=== PATIENT | male | born 1960 | race Caucasian/White ===

== ENCOUNTER 2023-02-14 16:27 | Emergency (ER) | payer OTHER, SELFPAY ==
[2023-02-14] VITALS (33 sets, daily range): BP systolic 112–185; BP diastolic 65–104; PULSE 53–73; RESP 11–37; TEMP 36.5; O2SAT 90–100; BMI 22.9
--- NOTE | 2023-02-14 | DI.RAD.S_ITS ---
PROCEDURE: XR ANKLE LT 2V INDICATIONS: TRAUMA TECHNIQUE: 3 views of the ankle were acquired. COMPARISON: None. FINDINGS: Bones: Fracture dislocation of the ankle with the distal tibia completely dislocated from the talus. The distal fibula is fracture distally with displacement. Soft tissues: No tibiotalar joint effusion. Achilles tendon appears normal. IMPRESSION: Fracture dislocation of the left ankle. Dictated by: Kadeem Christensen M.D. on 02/14/2023 at 16:48 Approved by: Kadeem Christensen M.D. on 02/14/2023 at 16:49
--- NOTE | 2023-02-14 16:29 | DI.RAD.S_ITS ---
PROCEDURE: XR ANKLE LT 2V INDICATIONS: post reduction TECHNIQUE: 2 views of the ankle were acquired. COMPARISON: [facility], CR, XR ANKLE LT 2V, 02/14/2023, 16:16. FINDINGS: Bones: Interval reduction, with improved tibiotalar alignment. Medial clear space and lateral clear space widening. Distal fibular fracture demonstrates mild displacement and foreshortening. Soft tissues: Significant tibiotalar joint effusion. Achilles tendon appears normal. Subcutaneous gas about the ankle. IMPRESSION: Interval reduction, with improved tibiotalar alignment. Medial clear space and lateral clear space widening, indicating unstable injury. Distal fibular fracture demonstrates mild displacement and foreshortening. Dictated by: Oc Dotson M.D. on 02/14/2023 at 17:33 Approved by: Oc Dotson M.D. on 02/14/2023 at 17:35
[2023-02-14] MEDS: propofoL 200 MG/20 ML VIAL 70 MG IV (17:05)
--- NOTE | 2023-02-14 17:19 | ED_ITS ---
HPI - Extremity Problem General Chief complaint: Trauma Stated complaint: Paragliding accident Time Seen by Provider: 02/14/23 16:29 Mode of arrival: EMS History of Present Illness HPI Narrative: Patient is a 63-year-old male presenting today after appear gliding accident with left ankle injury. He was sliding off cap [place] when he hit a rock with his ankle. He landed did not hit his head there is no loss of consciousness no neck pain. He is not on any medication. He has an obvious left ankle deformity pulses intact. Denies any other injury. Received fentanyl and Zofran with EMS. Related Data Previous Rx's Medication Instructions Recorded cephalexin 500 mg capsule 500 mg PO TID #21 caps 02/14/23 hydrocodone 5 mg-acetaminophen 325 1 tab PO Q6H PRN pain #10 tabs 02/14/23 mg tablet hydrocodone 5 mg-acetaminophen 325 1 tab PO Q6H PRN pain #15 tabs 02/14/23 mg tablet Allergies Allergy/AdvReac Type Severity Reaction Status Date / Time No Known Drug Allergies Allergy Verified 02/14/23 16:37 Review of Systems Review of Systems ROS Unobtainable: All systems reviewed & are unremarkable except as noted in HPI and below Exam Initial Vital Signs Initial Vital Signs: Vital Signs Pulse Rate 69 02/14/23 16:29 Respiratory Rate 11 L 02/14/23 16:29 Pulse Oximetry 99 02/14/23 16:29 GENERAL: Alert pleasant 63-year-old and in [no acute] distress. HEENT: Head atraumatic,EOMI, pupils reactive, face symmetric, [moist] mucous membranes CARDIOVASCULAR: Regular rate and rhythm without murmurs, rubs or gallops. RESPIRATORY: Breath sounds equal bilaterally, no wheezes rales or rhonchi. ABDOMEN: Soft, nontender. Normoactive bowel sounds all 4 quadrants. No guarding or rebound. EXTREMITIES: Normal range of motion, no clubbing or edema. Neurovascularly intact Obvious left ankle deformity with abrasion left medial malleoli with medial tibial dislocation. Distal pedal pulse present NEUROLOGICAL: Alert and oriented x4.Normal gait and speech. Cranial nerves II through XII grossly intact. SKIN: Warm, dry, no laceration, no petechiae, no rashes or lesions. Procedures Orthopedic Fracture Reduction Fracture #1: Side: left Fracture Reduction Location: tibia and fibula Analgesia: procedural sedation Technique: direct manipulation and traction/counter-traction Post Reduction X-rays Demonstrate: acceptable reduction Post-reduction neuro exam: intact Post-reduction vascular exam: intact Splint Applied: Yes Patient Tolerated Procedure: Well and No complications Orthopedic Splinting/Casting Injury #1: Side: left Lower Extremity Injury Location: ankle Lower Extremity Immobilizer: posterior splint and stirrup splint Other Orthopedic Equipment: crutches Post splinting neuro exam: intact Post splinting vascular exam: intact Placed by: Provider Procedural Sedation Time out performed: Yes Indication: fracture/dislocation reduction ASA Class: II Mallampati Airway Classification: Class II IV Propofol dose (mg): 70 Intraservice time/total sedation time (min): 70 ED Sedation Level: Moderate (Concious) Patient Tolerated Procedure: Well and No complications Complications: none Course Orders Ordered: ED Orders 02/14/23 16:29 XR ankle LT 2V Stat Discontinued Medications Hydrocodone Bitart/Acetaminophen (Hydrocodone/Acet 5/325 Prepack) 1 bottle MISC SEEINSTR ONE Stop: 02/14/23 17:56 Last Admin: 02/14/23 18:11 Dose: 1 bottle Documented By: GI Diphtheria/Tetanus/Acell Pertussis (Tet,Diph,Pertuss(Acell),Vac/Pf 0.5 Ml Syringe) 0.5 ml IM .ONCE ONE Stop: 02/14/23 17:56 Last Admin: 02/14/23 18:18 Dose: 0.5 ml Documented By: GI Cefazolin Sodium 1 gm/ Sodium (Chloride) 100 mls @ 200 mls/hr IV NOW ONE Stop: 02/14/23 18:25 Last Infusion: 02/14/23 19:17 Dose: 0 mls/hr Documented By: Admin: 02/14/23 18:11 Dose: 200 mls/hr Documented By: GI Propofol (Propofol 200 Mg/20 Ml Vial) 70 mg IV NOW ONE Stop: 02/14/23 16:33 Last Admin: 02/14/23 17:05 Dose: 70 mg Documented By: PACO Vital Signs Vital signs: Vital Signs - 8 hr 02/14/23 16:30 02/14/23 16:40 02/14/23 16:29 Temperature 97.7 F Pulse Rate 60 69 Respiratory Rate 16 11 L Blood Pressure 164/99 H Pulse Oximetry 100 99 Oxygen Delivery Method Room Air Room Air 02/14/23 16:30 02/14/23 16:35 02/14/23 16:40 Temperature Pulse Rate 65 65 67 Respiratory Rate 21 25 H 21 Blood Pressure Pulse Oximetry 99 99 Oxygen Delivery Method 02/14/23 16:45 02/14/23 16:46 02/14/23 16:46 Temperature Pulse Rate 61 61 Respiratory Rate 20 15 Blood Pressure 140/88 Pulse Oximetry 97 96 Oxygen Delivery Method 02/14/23 16:50 02/14/23 16:55 02/14/23 17:00 Temperature Pulse Rate 65 60 Respiratory Rate 26 H 29 H Blood Pressure 151/82 H Pulse Oximetry 96 98 Oxygen Delivery Method 02/14/23 17:00 02/14/23 17:05 02/14/23 17:05 Temperature Pulse Rate 56 L 58 L Respiratory Rate 11 L 17 Blood Pressure 143/82 H Pulse Oximetry 99 Oxygen Delivery Method 02/14/23 17:10 02/14/23 17:10 02/14/23 17:15 Temperature Pulse Rate 64 Respiratory Rate 16 Blood Pressure 136/76 135/76 Pulse Oximetry 98 Oxygen Delivery Method 02/14/23 17:15 02/14/23 17:20 02/14/23 17:20 Temperature Pulse Rate 60 57 L Respiratory Rate 29 H 18 Blood Pressure 112/65 Pulse Oximetry 97 99 Oxygen Delivery Method 02/14/23 17:25 02/14/23 17:30 02/14/23 17:33 Temperature Pulse Rate 61 59 L 55 L Respiratory Rate 28 H 37 H 21 Blood Pressure Pulse Oximetry 100 100 98 Oxygen Delivery Method 02/14/23 17:33 02/14/23 17:35 02/14/23 17:35 Temperature Pulse Rate 55 L Respiratory Rate 18 Blood Pressure 158/87 H 156/90 H Pulse Oximetry 99 Oxygen Delivery Method 02/14/23 18:07 02/14/23 17:40 02/14/23 17:40 Temperature Pulse Rate 63 57 L Respiratory Rate 16 19 Blood Pressure 155/104 H Pulse Oximetry 100 Oxygen Delivery Method 02/14/23 17:46 02/14/23 17:46 02/14/23 17:50 Temperature Pulse Rate 59 L Respiratory Rate 25 H Blood Pressure 153/99 H 167/94 H Pulse Oximetry 95 Oxygen Delivery Method 02/14/23 17:50 02/14/23 17:55 02/14/23 17:55 Temperature Pulse Rate 55 L 58 L Respiratory Rate 28 H 19 Blood Pressure 185/80 H Pulse Oximetry 99 95 Oxygen Delivery Method 02/14/23 18:00 02/14/23 18:00 02/14/23 18:05 Temperature Pulse Rate 57 L Respiratory Rate 18 Blood Pressure 164/71 H 146/70 H Pulse Oximetry 99 Oxygen Delivery Method 02/14/23 18:05 02/14/23 18:10 02/14/23 18:10 Temperature Pulse Rate 55 L 55 L Respiratory Rate 20 12 Blood Pressure 135/80 Pulse Oximetry 100 100 Oxygen Delivery Method 02/14/23 18:15 02/14/23 18:15 02/14/23 18:20 Temperature Pulse Rate 62 Respiratory Rate 16 Blood Pressure 162/85 H 154/92 H Pulse Oximetry 100 Oxygen Delivery Method 02/14/23 18:20 02/14/23 18:26 02/14/23 18:26 Temperature Pulse Rate 53 L 60 Respiratory Rate 13 21 Blood Pressure 169/88 H Pulse Oximetry 100 90 L Oxygen Delivery Method 02/14/23 18:30 02/14/23 18:30 02/14/23 18:35 Temperature Pulse Rate 62 Respiratory Rate 20 Blood Pressure 168/101 H 151/93 H Pulse Oximetry 95 Oxygen Delivery Method 02/14/23 18:35 02/14/23 18:40 02/14/23 18:40 Temperature Pulse Rate 67 56 L Respiratory Rate 19 14 Blood Pressure 147/93 H Pulse Oximetry 100 99 Oxygen Delivery Method 02/14/23 18:46 02/14/23 18:46 02/14/23 19:00 Temperature Pulse Rate 73 64 Respiratory Rate 26 H Blood Pressure 163/90 H Pulse Oximetry Oxygen Delivery Method MDM - Extremity (Nontraumatic) Imaging Data Extremity x-ray #1: Radiologist's Impression: PROCEDURE:? XR ANKLE LT 2V ? INDICATIONS:? TRAUMA ? TECHNIQUE:? 3 views of the ankle were acquired.? ? COMPARISON:? None. ? FINDINGS:? ? Bones:? Fracture dislocation of the ankle with the distal tibia completely dislocated from the talus.? The distal fibula is fracture distally with displacement. ? Soft tissues:? No tibiotalar joint effusion.? Achilles tendon appears normal.? ? ? IMPRESSION:? Fracture dislocation of the left ankle. ? ? Dictated by: Kadeem Christensen M.D. on 02/14/2023 at 16:48 ? ? Approved by: Kadeem Christensen M.D. on 02/14/2023 at 16:49 ? Extremity x-ray #2: Radiologist's Impression: PROCEDURE:? XR ANKLE LT 2V ? INDICATIONS:? post reduction ? TECHNIQUE:? 2 views of the ankle were acquired.? ? COMPARISON:? [facility], CR, XR ANKLE LT 2V, 02/14/2023, 16:16. ? FINDINGS:? ? Bones:? Interval reduction, with improved tibiotalar alignment.? Medial clear space and lateral clear space widening.? Distal fibular fracture demonstrates mild displacement and foreshortening. ? Soft tissues:? Significant tibiotalar joint effusion.? Achilles tendon appears normal.? Subcutaneous gas about the ankle. ? ? IMPRESSION:? Interval reduction, with improved tibiotalar alignment.? Medial clear space and lateral clear space widening, indicating unstable injury. ? Distal fibular fracture demonstrates mild displacement and foreshortening. ? Dictated by: Oc Dotson M.D. on 02/14/2023 at 17:33 ? ? MDM Narrative Medical decision making narrative: Patient 63-year-old male presents today after jonas gliding accident presents today with ankle fracture dislocation concern for open with the abrasion and tenting of skin on the medial malleoli. It did reduce easily he never lost pulses. However mortise alignment not ideal. 1735-Dr. Cardenas consulted. Agrees with outpatient follow-up will likely need surgery. Aware of abrasion immediately need or tibia as concern for possible open. Patient has a small abrasion medially where tibia is presumed open fracture. But no obvious bone is seen externally. He is given a dose of Ancef, tetanus and antibiotics. Discharge Plan Departure Patient Disposition: Home Clinical Impression: Closed fracture dislocation of left ankle Instructions: DI for Ankle Fracture Activity Restrictions/Additional Instructions: *You have been diagnosed with left ankle fracture and dislocation *What to do: Keep leg elevated and iced as often as possible. You will require surgery in about 1-2 weeks. No weight-bearing. Use crutches *Continue to take medications as directed--> sent to [facility] in [place] 1 tablet every 6 hours if needed for severe Keflex 500 mg 3 times a day for 7 days *Follow up with your primary care provider in 2-3 days or call [phone] Call Orthopedics Friday to schedule follow-up appointment *Return to ER if you should have increasing pain numbness tingling weakness or any new, worsening or concerning symptoms CONTROLLED SUBSTANCE DISCHARGE (Narcotoic/benzodiazepine/Flexeril/Phenergan) 1. You have been prescribed narcotic medications, it does have acetaminophen/Tylenol/paracetamol in it, DO NOT TAKE MORE THAN 4,00mg in 24 hours of Tylenol. TRAMADOL DOES NOT CONTAIN TYLENOL 2. Please understand that we cannot provide further refills of narcotics, benzodiazepines or controlled substances through the ED and her pain management will need to be through your provider. 3. While on these medications you cannot drive or operate heavy machinery. 4. You cannot sign legal documents or perform any duties such as this. 5. As long as you're taking opiate pain medications he should also be taking a stool softener such as Colace, Dulcolax, MiraLAX or prune juice, to help avoid constipation. Prescriptions: New hydrocodone-acetaminophen 5-325 mg tablet 1 tab PO Q6H PRN (Reason: pain) Qty: 10 0RF hydrocodone-acetaminophen 5-325 mg tablet 1 tab PO Q6H PRN (Reason: pain) Qty: 15 0RF cephalexin 500 mg capsule 500 mg PO TID Qty: 21 0RF Referrals: [facility] [Provider Group] Stand Alone Forms: Patient Portal/API
[2023-02-14] MEDS: HYDROCODONE/ACET 5/325 PREPACK 1 BOTTLE MISC (18:11)
[2023-02-14] MEDS: CEFAZOLIN VIAL 1 GM in SODIUM CHLORIDE 0.9% 100 ML IV (18:11)
[2023-02-14] MEDS: TET,DIPH,PERTUSS(ACELL),VAC/PF 0.5 ML SYRINGE IM (18:18)
== END 2023-02-14 19:20 | disposition home or self-care (01) ==
PROVIDERS: Emergency Provider Emergency Medicine
DX: S82.302A Unspecified fracture of lower end of left tibia, initial encounter for closed fracture (principal); Y93.19 Activity, other involving water and watercraft; Z23 Encounter for immunization
CPT/HCPCS: 27752; 29515; 36415; 73600; 90471; 96365; 99152; 99153; 99285; 90715; J0690; J2704

== ENCOUNTER 2023-02-19 08:27 | Day surgery (SDC) | payer OTHER, SELFPAY ==
[2023-02-18 13:03] VITALS: BMI 23.8
[2023-02-19] VITALS (7 sets, daily range): BP systolic 132–149; BP diastolic 55–90; PULSE 60–70; RESP 12–17; TEMP 36.4–36.9; O2SAT 97–100; BMI 23.8
--- NOTE | 2023-02-19 | DI.RAD.S_ITS ---
PROCEDURE: XR ANKLE LT MIN 3V INDICATIONS: ORIF LEFT ANKLE TECHNIQUE: Multiple spot fluoroscopic intraoperative images. COMPARISON: [facility], CR, XR ANKLE LT 2V, 02/14/2023, 17:09. [facility], CR, XR ANKLE LT 2V, 02/14/2023, 16:16. FINDINGS: Bones: Intraoperative images demonstrate distal fibular fracture fixation with a lateral plate and screw construct and a single transsyndesmotic screw. Osseous alignment as improved. Soft tissues: Overlying postoperative changes are present. IMPRESSION: Status post distal fibular fracture fixation and transsyndesmotic fixation with improved alignment. Approved by: Pee Dorman M.D. on 02/19/2023 at 12:50
[2023-02-19] MEDS: LACTATED RINGERS 1,000 ML 42 ML IV (09:35)
[2023-02-19] MEDS: CEFAZOLIN 2 GM/100 ML PREMIX 100 ML IV ×2 (10:40→14:15)
--- NOTE | 2023-02-19 10:54 | SUR.PREOP ---
Block start time [1045] . Monitoring initiated and maintained throughout procedure. Oxygen and medications given per anesthesiologist instructions. Patient remained stable throughout procedure, no adverse reactions noted. Block end time [1048].
--- NOTE | 2023-02-19 11:41 | SUR.OPER ---
Supine on padded OR bed, head on pillow, arms secured on padded arm boards at <90 degrees abduction, legs uncrossed, safety belt at thigh, tape over blanket over lower legs.
[2023-02-19] MEDS: BUPIVACAINE 0.25% W/ EPI (PF) 10 ML VIAL 20 ML INJ (11:47)
--- NOTE | 2023-02-19 13:13 | PM.OP.1 ---
Operative Date/Time/Diagnoses Date of procedure: 02/19/23 Time of procedure: 13:13 Pre-op diagnosis: Left fibular shaft fracture, left syndesmosis disruption Post-op diagnosis: same Procedure & Clinicians Procedure: 1. ORIF left fibular shaft 2. Operative fixation left ankle syndesmosis Same procedure as scheduled: Yes Indications: This is a 63-year-old male who sustained a ankle fracture dislocation after a hard landing while paragliding. He was taken to an emergency department where reduction was performed and he was placed into a splint. He was seen in our clinic by our PA 2 days ago where he was examined. Preoperatively we discussed indications for surgery which are to restore stability to the ankle allow earlier mobilization and reduce early posttraumatic osteoarthritis. Risks and benefits of surgery were discussed again including the risk of infection, damage to internal structures, bleeding, nerve injury, instability, need for revision surgery, blood clots, anesthesia and . No guarantees were made regarding outcomes. Patient expressed understanding and accepted these risks and wished to go forward with surgery and consent was signed. He expressed understanding with these risks and wished to go forward with surgery. Surgeon: Major Alvarenga Click Yes if Unassisted: Yes Anesthesia Type: General Operative Notes Findings: Left fibular shaft and syndesmosis disruption. Fracture blister over the medial malleolus Closure Type: primary Specimen(s): none sent Prosthetic devices, grafts, tissues, transplants, or devices: 10 hole 1/3 tubular plate 3.5 mm syndesmotic screw Estimated Blood Loss (mL): 10 Tourniquet time (min): 70 Procedure in detail: Procedure: The patient was met in the preoperative holding area and we again discussed the risks and benefits of surgery. My initials were marked on the correct left lower extremity. The patient was brought back to the operating room and transferred to the operating table. Smooth induction of anesthesia was performed. IV antibiotics were given. A time-out was then performed confirming the correct operative extremity with my initials. A tourniquet was applied to the upper thigh. Standard sterile prep was done with chlorhexidine. Appropriate dry time was observed. An Esmarch was used and the tourniquet was inflated to 250 mmHg. A standard lateral approach to the fibula was made using a 10 blade. The superficial peroneal nerve was encountered proximally and was protected throughout the case. Dissection was carried down to the bone and the fracture was encountered. There was an oblique midshaft fracture The fracture was irrigated and cleaned using a curette. A 10 hole 1/3 tubular plate was selected and fashioned and placed onto the bone and held with lobster claws. Proximal and distal drill holes were filled with nonlocking screws. This maintained fracture reduction quite well. A 3.5 mm quadricortical syndesmotic screw was then placed in the most distal incision at the level of the physeal scar will holding manual compression between the tibia and fibula. This created strong fixation and stress view did not demonstrate any medial clear space widening. Final fluoroscopy confirmed screw length and plate position as well as fracture reduction. Wounds were closed with 3-0 Vicryl and 2-0 nylon and dressed with Xeroform, 4x4s cast padding and then placed into a well-padded splint the patient awoke from anesthesia and was transported to the postoperative recovery unit without any issues Complications: none Post-operative Condition: stable Disposition: PACU Plan for aftercare: Postoperatively: Nonweightbearing for toe-touch weight bearing for 6 weeks. Okay to be transitioned to a boot at the 2 week makayla in clinic when sutures are removed.
--- NOTE | 2023-02-20 08:07 | PM.PREOP ---
Pre-operative Note Interval Note History & Physical reviewed/Exam performed by Physician: Yes Changes to H&P: No
== END 2023-02-19 14:30 | disposition home or self-care (01) ==
PROVIDERS: Referring Provider Orthopaedic Surgery; Visit Provider Orthopaedic Surgery
PROC: (CPT 27784; principal; 2023-02-19 10:45)
DX: S82.432A Displaced oblique fracture of shaft of left fibula, initial encounter for closed fracture (principal); S93.05XA Dislocation of left ankle joint, initial encounter; G89.18 Other acute postprocedural pain; Y93.19 Activity, other involving water and watercraft; Y92.89 Other specified places as the place of occurrence of the external cause
CPT/HCPCS: 27784; 27829; 64450; 73610; 76000; J0690; J1100; J1170; J2250; J2405; J2704; J3010